=== PATIENT | female | born 1995 | race Caucasian/White ===

== ENCOUNTER → 2020-08-04 12:51 | Outpatient (BNVA) | payer OTHER, SELFPAY | PROVIDERS: Visit Provider Nurse Practitioner | DX: J02.9 Acute pharyngitis, unspecified (principal) | CPT/HCPCS: 87071; 87880 ==

== ENCOUNTER → 2023-09-14 13:48 | Outpatient (BNVA) | payer OTHER, SELFPAY | PROVIDERS: Visit Provider Obstetrics & Gynecology | DX: Z01.419 Encounter for gynecological examination (general) (routine) without abnormal findings (principal); Z31.69 Encounter for other general counseling and advice on procreation | CPT/HCPCS: 80053; 84146; 84443; 85025; 87624 ==

== ENCOUNTER → 2023-10-20 08:00 | Outpatient (BNVA) | payer OTHER, SELFPAY | PROVIDERS: Visit Provider Nurse Practitioner Women's Health | DX: Z32.01 Encounter for pregnancy test, result positive (principal); N92.6 Irregular menstruation, unspecified | CPT/HCPCS: 81025; 84702; 86850; 86900 ==

== ENCOUNTER → 2023-10-31 14:21 | Outpatient (BNVA) | payer OTHER, SELFPAY | PROVIDERS: Visit Provider Nurse Practitioner Women's Health | DX: Z36.87 Encounter for antenatal screening for uncertain dates (principal); Z3A.01 Less than 8 weeks gestation of pregnancy; O20.8 Other hemorrhage in early pregnancy | CPT/HCPCS: 76801; 76802 ==

== ENCOUNTER → 2023-11-15 10:20 | Outpatient (BNVA) | payer OTHER, SELFPAY | PROVIDERS: Visit Provider Obstetrics & Gynecology | DX: O20.8 Other hemorrhage in early pregnancy (principal); O30.001 Twin pregnancy, unspecified number of placenta and unspecified number of amniotic sacs, first trimester; Z3A.09 9 weeks gestation of pregnancy | CPT/HCPCS: 76801; 76802 ==

== ENCOUNTER → 2023-11-18 08:12 | Outpatient (BNVA) | payer OTHER, SELFPAY | PROVIDERS: Visit Provider Nurse Practitioner Women's Health | DX: O30.009 Twin pregnancy, unspecified number of placenta and unspecified number of amniotic sacs, unspecified trimester (principal) | CPT/HCPCS: 80307; 84315; 84443; 86592; 86762; 86787; 86803; 86850; 86900; 87086; 87340; 87491; 87591; 87806 ==

== ENCOUNTER → 2023-11-28 14:15 | Outpatient (BNVA) | payer OTHER, SELFPAY | PROVIDERS: Visit Provider Obstetrics & Gynecology | DX: O20.8 Other hemorrhage in early pregnancy (principal); O30.001 Twin pregnancy, unspecified number of placenta and unspecified number of amniotic sacs, first trimester; Z3A.11 11 weeks gestation of pregnancy | CPT/HCPCS: 76805; 76810 ==

== ENCOUNTER → 2023-11-30 08:13 | Outpatient (BNVA) | payer OTHER, SELFPAY | PROVIDERS: Visit Provider Obstetrics & Gynecology | DX: Z53.9 Procedure and treatment not carried out, unspecified reason (principal) | CPT/HCPCS: 84315 ==

== ENCOUNTER → 2024-02-22 07:54 | Outpatient (BNVA) | payer OTHER, SELFPAY | PROVIDERS: Visit Provider Nurse Practitioner Women's Health | DX: O26.892 Other specified pregnancy related conditions, second trimester (principal); Z3A.24 24 weeks gestation of pregnancy | CPT/HCPCS: 76816; 82950; 84315 ==

== ENCOUNTER → 2024-03-21 09:02 | Outpatient (BNVA) | payer BC, SELFPAY | PROVIDERS: Visit Provider Obstetrics & Gynecology | DX: O30.049 Twin pregnancy, dichorionic/diamniotic, unspecified trimester (principal) | CPT/HCPCS: 84315 ==

== ENCOUNTER → 2024-03-22 11:04 | Outpatient (BNVA) | payer BC, SELFPAY | PROVIDERS: Visit Provider Obstetrics & Gynecology | DX: O30.049 Twin pregnancy, dichorionic/diamniotic, unspecified trimester (principal); Z36.9 Encounter for antenatal screening, unspecified | CPT/HCPCS: 76816 ==

== ENCOUNTER 2024-04-04 14:00 | Outpatient (CLI) | payer OTHER, SELFPAY ==
[2024-04-04 14:10] VITALS: BMI 31.2
[2024-04-04 14:17] VITALS: BP 125/65; PULSE 93
[2024-04-04 14:20] VITALS: RESP 17
[2024-04-04] MEDS: betamethasone susp 6 mg/mL 1 mL (per mL) 12 MG IM (14:39)
== END 2024-04-04 14:43 | disposition home or self-care (01) ==
LOC: OPOB 14:05 → OBGYN 14:07
PROVIDERS: Visit Provider Obstetrics & Gynecology
DX: O26.899 Other specified pregnancy related conditions, unspecified trimester (principal); Z3A.00 Weeks of gestation of pregnancy not specified
CPT/HCPCS: 84315; 96372; 99211; J0702

== ENCOUNTER 2024-04-05 15:24 | Outpatient (CLI) | payer OTHER, SELFPAY ==
[2024-04-05 15:35] VITALS: BP 133/73; PULSE 113
[2024-04-05] MEDS: betamethasone susp 6 mg/mL 1 mL (per mL) 12 MG IM (15:41)
== END 2024-04-05 15:35 | disposition home or self-care (01) ==
LOC: OPOB 15:25 → OBGYN 15:28
PROVIDERS: Visit Provider Obstetrics & Gynecology
DX: O26.899 Other specified pregnancy related conditions, unspecified trimester (principal); Z3A.00 Weeks of gestation of pregnancy not specified
CPT/HCPCS: 96372; J0702

== ENCOUNTER → 2024-04-18 10:26 | Outpatient (BNVA) | payer OTHER, SELFPAY | PROVIDERS: Visit Provider Obstetrics & Gynecology | DX: O30.049 Twin pregnancy, dichorionic/diamniotic, unspecified trimester (principal) | CPT/HCPCS: 76816; 84315; 85025 ==

== ENCOUNTER → 2024-05-08 13:51 | Outpatient (BNVA) | payer OTHER, SELFPAY | PROVIDERS: Visit Provider Nurse Practitioner Women's Health | DX: O30.049 Twin pregnancy, dichorionic/diamniotic, unspecified trimester (principal) | CPT/HCPCS: 84315 ==

== ENCOUNTER 2024-05-14 14:20 | Outpatient (CLI) | payer OTHER, SELFPAY ==
[2024-05-14] VITALS (7 sets, daily range): BP systolic 126–140; BP diastolic 68–75; PULSE 93–100; RESP 16; TEMP 36.7; O2SAT 99; BMI 33.3
== END 2024-05-14 16:02 | disposition home or self-care (01) ==
LOC: OPOB 14:24 → OBGYN 14:24
PROVIDERS: Visit Provider Obstetrics & Gynecology
DX: O16.9 Unspecified maternal hypertension, unspecified trimester (principal); Z3A.00 Weeks of gestation of pregnancy not specified
CPT/HCPCS: 59025; 99211

== ENCOUNTER → 2024-05-16 10:29 | Outpatient (BNVA) | payer OTHER, SELFPAY | PROVIDERS: Visit Provider Obstetrics & Gynecology | DX: O30.043 Twin pregnancy, dichorionic/diamniotic, third trimester (principal); O35.9XX0 Maternal care for (suspected) fetal abnormality and damage, unspecified, not applicable or unspecified; Z3A.35 35 weeks gestation of pregnancy | CPT/HCPCS: 76816; 84315; 87081 ==

== ENCOUNTER 2024-05-17 11:35 | Outpatient (CLI) | payer OTHER, SELFPAY ==
[2024-05-17 11:47] VITALS: BP 135/83; PULSE 95
[2024-05-17 12:08] VITALS: BP 131/77; PULSE 99
[2024-05-17 12:28] VITALS: BP 126/79; PULSE 94
== END 2024-05-17 12:30 | disposition home or self-care (01) ==
LOC: OPOB 11:37 → OBGYN 11:38
PROVIDERS: Visit Provider Obstetrics & Gynecology
DX: O16.9 Unspecified maternal hypertension, unspecified trimester (principal); Z3A.00 Weeks of gestation of pregnancy not specified
CPT/HCPCS: 59025; 99211

== ENCOUNTER 2024-05-21 09:34 | Outpatient (CLI) | payer OTHER, SELFPAY ==
[2024-05-21 09:34] VITALS: BMI 34.4
[2024-05-21 09:45] VITALS: BP 143/81; PULSE 98
[2024-05-21 10:03] VITALS: BP 137/83; PULSE 96
[2024-05-21 10:17] VITALS: BP 138/85; PULSE 102
[2024-05-21 10:32] VITALS: BP 139/84; PULSE 101
== END 2024-05-21 10:38 | disposition home or self-care (01) ==
LOC: OPOB 09:37 → OBGYN 09:38
PROVIDERS: Visit Provider Obstetrics & Gynecology
DX: O16.9 Unspecified maternal hypertension, unspecified trimester (principal); Z3A.00 Weeks of gestation of pregnancy not specified
CPT/HCPCS: 59025

== ENCOUNTER 2024-05-23 11:15 | Outpatient (CLI) | payer OTHER, SELFPAY ==
[2024-05-23 11:30] VITALS: BP 142/84; PULSE 104
[2024-05-23 11:44] VITALS: BMI 34.2
[2024-05-23 11:46] VITALS: BP 131/73; PULSE 96
[2024-05-23 12:01] VITALS: BP 139/79; PULSE 89
[2024-05-23 12:16] VITALS: BP 134/77; PULSE 92
== END 2024-05-23 12:28 | disposition home or self-care (01) ==
LOC: OPOB 11:17 → OBGYN 11:18
PROVIDERS: Visit Provider Obstetrics & Gynecology
DX: O16.9 Unspecified maternal hypertension, unspecified trimester (principal); Z3A.00 Weeks of gestation of pregnancy not specified
CPT/HCPCS: 59025; 99211

== ENCOUNTER 2024-05-25 03:47 | Inpatient (IN) | payer OTHER, SELFPAY ==
[2024-05-25] VITALS (74 sets, daily range): BP systolic 114–145; BP diastolic 51–87; PULSE 81–134; RESP 16; TEMP 36.6; O2SAT 92–100; BMI 34.2
[2024-05-25 03:24] LABS: Basophils % 0.4 %; Eosinophils # 0.2 10^3/uL (0.0-0.8); Eosinophils % 1.7 %; Lymphocytes # 2.3 10^3/uL (0.8-4.8); Lymphocytes % 22.4 %; Mean Corpuscular HGB Conc 34.2 g/dL (30-55); Mean Corpuscular Hemoglobin 31.5 pg (27-33); Mean Corpuscular Volume 92.1 fl (85-98); Mean Platelet Volume 12.2 fL (7.4-10.4); Monocytes % 9.6 %; Neutrophils # 6.75 10^3/uL (1.8-7.7); Nucleated Red Blood Cells % 0 %; Platelet Count 107 10^3/cmm (157-399); Red Blood Count 3.91 10^6/uL (3.85-5.65); Red Cell Distribution Width 12.5 % (12.1-15.1); White Blood Count 10.39 10^3/uL (3.29-11.43)
[2024-05-25] MEDS: ampicillin 2,000 MG in sodium chloride 0.9% (plus) 50 ML 100 MG IV (04:02)
[2024-05-25] MEDS: dextrose 5%-lactated ringers 1,000 ML 125 ML IV (04:02)
--- NOTE | 2024-05-25 04:10 | PM.OBGYHP ---
Providers/Chief Complaint Admitting Physician: Mickey Chairez MD Primary BALING MACHINE OPERATOR: Mickey Chairez MD Chief Complaint: Poss SROM HPI BALING MACHINE OPERATOR History of Present Illness Marli Samuels is a 29 year old female G1 with dichorionic / diamnionic twins EDC June 13, 2024 at 37 w 2 d no complications presented to L&D c/o fluid leakage mild uterine contractions no bleeding + active movements Present Details : 1 Labs Rubella: Immune RPR: Negative GBS: Positive Medications/Allergies Home Medications ?Medication ?Instructions ?Recorded ?Confirmed ?Last Taken ?Type multivitamin with iron (Daily 1 tab PO DAILY 01/02/24 05/25/24 Unknown History Vitamin with Iron tablet) aspirin 81 mg tablet,delayed 81 mg PO DAILY 02/13/24 05/25/24 Unknown History release (Adult Low Dose Aspirin) famotidine 20 mg tablet (Pepcid) 20 mg PO DAILY 02/13/24 05/25/24 Unknown History Allergies Allergy/AdvReac Type Severity Reaction Status Date / Time No Known Allergies Allergy Verified 05/25/24 03:32 PFSH BALING MACHINE OPERATOR PFSH: Family History Mother Hypertension Brother Hypertension Denies family history of Colon cancer Ovarian cancer Prostate cancer Diabetes Heart disease Breast cancer Thyroid disease Stroke Social History Smoking and tobacco/nicotine status: never used tobacco/nicotine History History History 1 Term Miscarriages/Ectopic Living Children Care TAMMIE Calculator Estimated Delivery Date Method Current WG Current Estimate 06/13/24 LMP (Certain) 37w 3d Other Estimates 06/16/24 Ultrasound #1 37w 0d # 2 Specific Issues/Plans TWIN DI/DI: recieved betamethasone at 30 weeks NAUSEA AND VOMITING IN : Taking Reglan daily Vitals/I&O/Wt Last Vital Signs Temp 97.9 F 05/25/24 03:13 Pulse 117 H 05/26/24 08:46 Resp 16 05/25/24 03:13 BP 130/60 05/26/24 08:43 Pulse Ox 98 05/26/24 08:46 O2 Del Method Room Air 05/25/24 22:15 05/25/24 05/26/2405/26/25 22:59 06:59 14:59 Intake Total 514.917 / 615.700 933.8 / 1549.500 Output Total 300 / 300 Balance 514.917 / 615.700 633.8 / 1249.500 Weight last 48 hrs Weight 239 lb Physical Exam Narrative: Weight 230 lbs; 5?10? VS normal General comfortable, awake, alert Lungs: clear Cor: RRR Abd: nontender Vulva: + gross clear amniotic fluid Cervix: 3 cm / 50% / -2 Bedside sono cephalic / cephalic twins External monitor: heart tracing good variability, + accelerations x two Urinary Catheter Management: Villarreal Latex: Cath Placed During This Visit: yes, but has since been removed by the nurse Reason for Continuing Indwelling Catheter: Other Urinary Catheter Date of Insertion: 05/25/24 Urinary Catheter Time of Insertion: 17:30 Date Urinary Catheter Removed: 05/25/24 Time Urinary Catheter Discontinued: 20:35 Data 05/25/24 10:17 Results Labs OB ([facility]): Obstetrics US 05/16/24 Blood Type A Positive 05/25/24 Antibody Screen Negative 05/25/24 Hct 36.9 % (36-47) 05/25/24 Hgb 12.40 g/dL (11.27-16.99) 05/25/24 Rho(D) Type Rh positive 05/25/24 Plt Count 112 10^3/cmm (157-399) L 05/25/24 Hep Bs Antigen Non-reactive (Nonreactive) 11/18/23 Hepatitis C Antibody Non-reactive (Nonreactive) 11/18/23 Rubella IgG Antibody 69.2 IU/mL (0.0-10.0) H 11/18/23 RPR Nonreactive (Nonreactive) 11/18/23 HIV 1&2 Ab & HIV 1 Ag Non-reactive (Non-Reactiv) 11/18/23 TSH 0.50 uIU/mL (0.27-4.20) 11/18/23 C.trachomatis RNA (TMA) Not detected (NOT DETECTED) 11/18/23 N.gonorrhoeae RNA (TMA) Not detected (NOT DETECTED) 11/18/23 T. vaginalis Amp RNA Not detected (NOT DETECTED) 11/18/23 Chlamydia/GC Comment See note 11/18/23 Glucose 1 Hr 50 gm 93 mg/dL (85-140) 02/22/24 VZV IgG Antibody 1608.00 index 11/18/23 Ser , Semi-Qnt 88388.00 mIU/mL 10/20/23 HCG, Qual Positive (Negative) H 10/20/23 Urine Opiates Screen Negative ng/mL (Negative) 11/18/23 Ur Barbiturates Screen Negative ng/mL (Negative) 11/18/23 Ur Phencyclidine Scrn Negative ng/mL (Negative) 11/18/23 Ur Amphetamines Screen Negative ng/mL (Negative) 11/18/23 U Benzodiazepines Scrn Negative ng/mL (Negative) 11/18/23 Urine Cocaine Screen Negative ng/mL (Negative) 11/18/23 U Marijuana (THC) Screen Negative ng/mL (Negative) 11/18/23 Micro Urine Specimen 11/18/23 Pap Smear Interpret See note 09/14/23 Prolactin 13.06 ng/mL (4.8-23.3) 09/14/23 A&P Assessment and plan (1) Twin , dichorionic/diamniotic, unspecified trimester: Di / Di twins at 37 w 2 d Cephalic / cephalic Spontaneous rupture of membranes Cx at 3 cm Will admit Labor management Start Abx for GBS + PDMP PDMP Reviewed: Not Reviewed Attestations Medical Necessity Statement*: patient with twins at 37 w 2 d, spontaneous rupture of membranes Coding Level of Care Code Acute Code for Chg Fwd Diagnoses Twin , dichorionic/diamniotic, unspecified trimester O30.049 Time Spent (min) 60
[2024-05-25] MEDS: ampicillin 1,000 MG in sodium chloride 0.9% (plus) 50 ML 100 MG IV ×3 (10:22→18:21)
[2024-05-25 10:34] LABS: Basophils # 0.1 10^3/uL (0.0-0.1); Basophils % 0.5 %; Eosinophils # 0.1 10^3/uL (0.0-0.8); Eosinophils % 1.2 %; Hematocrit 36.9 % (36-47); Lymphocytes % 17.9 %; Mean Corpuscular HGB Conc 33.6 g/dL (30-55); Mean Corpuscular Hemoglobin 31.2 pg (27-33); Mean Corpuscular Volume 92.7 fl (85-98); Mean Platelet Volume 12.1 fL (7.4-10.4); Monocytes # 0.9 10^3/uL (0.2-0.9); Monocytes % 7.7 %; Nucleated Red Blood Cells % 0 %; Platelet Count 112 10^3/cmm (157-399); Red Blood Count 3.98 10^6/uL (3.85-5.65); Red Cell Distribution Width 12.5 % (12.1-15.1); White Blood Count 10.97 10^3/uL (3.29-11.43)
--- NOTE | 2024-05-25 11:45 | P.PN_ITS ---
TRAILER SECTIONS ASSEMBLER Subjective 2 Subjective: Interval history: Fetus reassuring x two Mild uterine contractions Plan start Pitocin augmentation Labor: Station: +2 Amniotic Membrane Status: Ruptured Monitor Mode: Palpation Contraction Pattern: Regular Vitals/I&O/Wt Last Vital Signs Temp 97.9 F 05/25/24 03:13 Pulse 117 H 05/26/24 08:46 Resp 16 05/25/24 03:13 BP 130/60 05/26/24 08:43 Pulse Ox 98 05/26/24 08:46 O2 Del Method Room Air 05/25/24 22:15 05/25/24 05/26/24 05/26/24 22:59 06:59 14:59 Intake Total 514.917 / 615.700 933.8 / 1549.500 Output Total 300 / 300 Balance 514.917 / 615.700 633.8 / 1249.500 Weight last 48 hrs Weight 239 lb Physical Exam 2 Urinary Catheter Management: Villarreal Latex: Cath Placed During This Visit: yes, but has since been removed by the nurse Reason for Continuing Indwelling Catheter: Other Urinary Catheter Date of Insertion: 05/25/24 Urinary Catheter Time of Insertion: 17:30 Date Urinary Catheter Removed: 05/25/24 Time Urinary Catheter Discontinued: 20:35 Data 05/25/24 10:17 A&P Assessment and plan (1) Twin , dichorionic/diamniotic, unspecified trimester: PDMP PDMP Reviewed: Not Reviewed Attestations 2 Medical Necessity Statement*: patient with twins at 37 w 2 d, spontaneous rupture of membranes Coding Level of Care Code Acute Code for Chg Fwd Diagnoses Twin , dichorionic/diamniotic, unspecified trimester O30.049 Time Spent (min) 30
[2024-05-25] MEDS: oxytocin 30 UNIT/500 ML BAG IV (14:03)
[2024-05-25] MEDS: acetaminophen 325 mg Tablet 650 MG PO (14:05)
[2024-05-25] MEDS: lactated ringers 1,000 ML 999 ML IV ×2 (15:35→22:40)
[2024-05-25] MEDS: ROPivacaine syringe 100 MG/50 ML SYRINGE 10 MG EPIDURAL ×2 (16:30→20:19)
--- NOTE | 2024-05-25 16:39 | ANES.PREANE2 ---
Pre-Anesthetic Assessment Height/Weight: Height 1.78 m Weight 108.409 kg Temp Pulse Resp BP Pulse Ox O2 Del Method 97.9 F 88 16 133/73 99 Room Air 05/25/24 03:13 05/25/24 16:37 05/25/24 03:13 05/25/24 16:37 05/25/24 16:27 05/25/24 04:26 Preop Diagnosis: intrauterine Familial anesthetic complications: none Was Beta Apolonia taken within 24 hours: N/A Was Clonidine taken within 24 hours: N/A Last intake: 05/24/24 2100 Social No alcohol and No tobacco Exam alert, oriented x 3, clear to auscultation bilaterally and regular rate & rhythm Airway Submandibular: within normal limits Mallampati: Class II Dentition: full History/ROS No significant history except as noted and No significant complaints Pulmonary None reported CV/HEM None reported None reported Hepatic None reported GI Gastroesophageal Reflux Disease Metabolic None reported Musc/skel None reported Neuropsych None reported Anesthetic Plan ASA status: 2 Anesthesia: Regional (specify below) Other: epidural Medications/Allergies Home Medications ?Medication ?Instructions ?Recorded ?Confirmed ?Last Taken ?Type multivitamin with iron (Daily 1 tab PO DAILY 01/02/24 05/25/24 Unknown History Vitamin with Iron tablet) famotidine 20 mg tablet (Pepcid) 20 mg PO DAILY 02/13/24 05/25/24 Unknown History oxycodone-acetaminophen 5 mg-325 1 tab PO BID PRN pain #20 tabs 05/27/24 Unknown Rx mg tablet (Percocet) Allergies Allergy/AdvReac Type Severity Reaction Status Date / Time No Known Allergies Allergy Verified 05/25/24 03:32 Current Medications Generic Name Dose Route Start Last Admin Trade Name Freq PRN Reason Stop Dose Admin Acetaminophen 650 mg 05/25/24 03:13 05/25/24 14:05 Acetaminophen 325 Mg Tablet PO 650 mg Q6H PRN Administration Mild pain or temp > 100.4 Dextrose/Lactated Ringer's 1,000 mls @ 125 mls/hr 05/25/24 03:15 05/25/24 04:02 Dextrose 5%-Lactated Ringers IV 125 mls/hr .Q8H TINO Administration Ampicillin Sodium 1,000 mg/ 50 mls @ 100 mls/hr 05/25/24 07:15 05/25/24 14:06 Sodium Chloride IV 100 mls/hr Q4H TINO Administration Protocol Oxytocin 30 unit in 500 mls @ 1 mls/hr 05/25/24 12:00 05/25/24 15:40 Pitocin IV 6 milliunit/min .Q24H TINO 6 mls/hr Titration Protocol 1 MILLIUNIT/MIN Lactated Ringer's 1,000 mls @ 999 mls/hr 05/25/24 15:19 05/25/24 15:35 Lactated Ringers IV 999 mls/hr .Q1H1M PRN Administration See label comments PFSH Anesthesia Medical History (Updated 05/28/24 @ 00:00 by ANNAMARIA Mendoza) Twin delivered vaginally Twin , dichorionic/diamniotic, unspecified trimester Family History Mother Hypertension Brother Hypertension Denies family history of Colon cancer Ovarian cancer Prostate cancer Diabetes Heart disease Breast cancer Thyroid disease Stroke Social History Smoking and tobacco/nicotine status: never used tobacco/nicotine Female Reproductive History : 1 Data Anesthesia 05/26/24 17:20 Short CBC 05/25/24 05/25/24 Range/Units 03:18 10:17 WBC 10.39 10.97 (3.29-11.43) 10^3/uL Hgb 12.30 12.40 (11.27-16.99) g/dL Hct 36.0 36.9 (36-47) % MCV 92.1 92.7 (85-98) fl Plt Count 107 L 112 L (157-399) 10^3/cmm Neut % (Auto) 65.0 72.0 % Neut # (Auto) 6.75 7.90 H (1.8-7.7) 10^3/uL Blood Bank 05/25/24 03:18 Blood Type A Positive Rho(D) Type Rh positive Antibody Screen Negative Cardiac Studies: No Data to Display Anesthesia Procedures Date of Procedure 05/25/24 Epidural Time Out Performed: Yes Consents Signed: Procedure Consent and NPO Consent Consent: requested by attending/covering physician, from patient, risks and benefits reviewed and patient agrees to proceed Lumbar Level: L4-L5 Epidural position: sitting Epidural procedure: sterile prep of area, 1% lidocaine to numb the area, 18 g needle, negative for paresthesia passed, neg for paresthesia, test dose given, 1.5% xylocaine 1:200k epi, 0.2% Ropivacaine bolus ml (5mL), placed PCEA, no systemic response, sterile dressing applied, L.U.D. no apparent complications and 0.2% Ropiavacaine @ mls/hr (10mL/hr) Additional Comments: BENITO @ 5cm, easy placement no complications.
--- NOTE | 2024-05-25 22:05 | PM.DELIVERY ---
Delivery Note: Date of delivery: May 25, 2024 Pre-delivery diagnoses: dichorionic, diamnionic twins 37 w 2 d spontaneous rupture of membranes Post-delivery diagnoses: dichorionic, diamnionic twins 37 w 2 d spontaneous rupture of membranes labor augmentation vaginal delivery of twins repair of third-degree perineal laceration Procedure: labor augmentation vaginal delivery of twins repair of third-degree perineal laceration Op report anesthesia: Epidural Delivering Physician: Mickey Chairez MD Estimated blood loss (mL): 500 Findings: twin A, vigorous female infant twin B, vigorous female infant Cord gases obtained Normal placenta and cord No episiotomy Third-degree perineal laceration repaired in layers EBL: 500 cc No complications Pre-Delivery Course: normal labor course Delivery: vaginal Post-Delivery Status: good History History History 1 Term Miscarriages/Ectopic Living Children A&P Assessment and plan (1) Twin delivered vaginally: PDMP PDMP Reviewed: Not Reviewed Coding Level of Care Code Acute Code for Chg Fwd Diagnoses Twin delivered vaginally O30.009 Time Spent (min) 60
--- NOTE | 2024-05-25 22:40 | PC.NURSE ---
Patient to PP room. Patient states I'm not feeling so good, my ears are ringing. Patient's color has drained from her face and she is not focusing. Patient states she feels out of my body. Fundus is firm with massage. Vitals obtained, fluid bolus started, pitocin increased to bolus. Patient color returning to normal and patient states she is feeling less dizzy.
[2024-05-26] VITALS (172 sets, daily range): BP systolic 106–139; BP diastolic 54–87; PULSE 84–137; RESP 16–18; TEMP 36.6–36.9; O2SAT 89–100
[2024-05-26] MEDS: oxytocin 30 UNIT/500 ML BAG 600 UNIT IV
--- NOTE | 2024-05-26 01:00 | PC.NURSE ---
Patient assisted to side of bed, patient tolerates sitting up and dangling feet off side of bed, standing and walking to bathroom. When patient sits down on the toilet she states I don't feel so good, my ears are ringing. Patient has lost color in her face, Radial Pulse taken and is found to be 110s. Patient feeling unsteady on the toilet. Fundus is midline and firm, minimal bleeding. Emergency light activated for assistance. Staff arrive and assist in getting patient back to bed. Fan provided at bedside. Vitals obtained. Patient states they are feeling better.
[2024-05-26] MEDS: HYDROcodone-acetaminophen 5-325 mg Tablet PO ×3 (06:13→20:11)
[2024-05-26] MEDS: benzocaine-menthol 78 gm Canister 1 SPRAY TOPICAL (06:20)
--- NOTE | 2024-05-26 08:00 | ANE.PACU2 ---
Inpatient post-anesthesia follow up: Airway intact: Yes Vital signs: Temperature 98.0 F Pulse Rate 115 Respiratory Rate 18 Blood Pressure 136/79 Pulse Oximetry 98 Oxygen Delivery Me thod Room Air Oxygen Flow Rate Fraction of Inspir ed Oxygen Hydration adequate: Yes Nausea and vomiting: No Pain level: 1 Mental status: Baseline Epidural Start/End: Epidural Start Date: 05/25/24 Epidural Start Time: 16:16 Epidural End Date: 05/26/24 Epidural End Time: 01:00
[2024-05-26] MEDS: PRENATAL VIT NO.130/IRON/FOLIC 1 EACH TABLET PO (08:20)
[2024-05-26] MEDS: docusate sodium 100 mg Capsule PO ×2 (08:20→20:11)
[2024-05-26] MEDS: ibuprofen 800 mg tablet PO ×3 (08:20→20:11)
[2024-05-26 09:01] LABS: Hematocrit 22.3 % (36-47); Mean Corpuscular HGB Conc 34.1 g/dL (30-55); Mean Corpuscular Hemoglobin 32.1 pg (27-33); Mean Corpuscular Volume 94.1 fl (85-98); Mean Platelet Volume 12.1 fL (7.4-10.4); Platelet Count 106 10^3/cmm (157-399); Red Blood Count 2.37 10^6/uL (3.85-5.65); Red Cell Distribution Width 12.8 % (12.1-15.1); White Blood Count 14.18 10^3/uL (3.29-11.43)
--- NOTE | 2024-05-26 11:50 | PM.OBGYPN ---
ENVIRONMENTAL SCIENTIST Subjective Subjective: Interval history: no c/o no headaches, dizziness, nausea, abdominal pain, bleeding normal lochia mild perineal pain, relieved with pain meds eating, voiding, ambulating well Labor: Station: +2 Amniotic Membrane Status: Ruptured Monitor Mode: Palpation Contraction Pattern: Regular Vitals/I&O/Wt Last Vital Signs Temp 98.0 F 05/27/24 13:58 Pulse 115 H 05/27/24 13:21 Resp 18 05/26/24 13:44 BP 136/79 05/27/24 13:21 Pulse Ox 98 05/26/24 15:11 O2 Del Method Room Air 05/25/24 22:15 Physical Exam Narrative: afebrile, VS normal comfortable, awake, alert Abd: soft, nontender. fundus firm Ext: no edema; nontender Urinary Catheter Management: Villarreal Latex: Cath Placed During This Visit: yes, but has since been removed by the nurse Reason for Continuing Indwelling Catheter: Other Urinary Catheter Date of Insertion: 05/25/24 Urinary Catheter Time of Insertion: 17:30 Date Urinary Catheter Removed: 05/25/24 Time Urinary Catheter Discontinued: 20:35 Data 05/26/24 17:20 A&P Assessment and plan (1) Twin delivered vaginally: PPD #1 twins, with repair of third-degree perineal laceration doing well normal course continue care PDMP PDMP Reviewed: Last Reviewed 05/27/24 12:17 EDT by Mickey Chairez MD Attestations Medical Necessity Statement*: patient s/p vaginal delivery of twins, for care Coding Level of Care Code Acute Code for Chg Fwd Diagnoses Twin delivered vaginally O30.009
[2024-05-26 18:54] LABS: Basophils % 0.3 %; Eosinophils # 0.1 10^3/uL (0.0-0.8); Eosinophils % 0.7 %; Hematocrit 24.2 % (36-47); Lymphocytes # 2.6 10^3/uL (0.8-4.8); Lymphocytes % 21.6 %; Mean Corpuscular HGB Conc 33.9 g/dL (30-55); Mean Corpuscular Hemoglobin 31.9 pg (27-33); Mean Corpuscular Volume 94.2 fl (85-98); Mean Platelet Volume 12.4 fL (7.4-10.4); Monocytes # 1.2 10^3/uL (0.2-0.9); Monocytes % 9.5 %; Neutrophils # 8.21 10^3/uL (1.8-7.7); Neutrophils % 67.3 %; Nucleated Red Blood Cells % 0 %; Platelet Count 108 10^3/cmm (157-399); Red Blood Count 2.57 10^6/uL (3.85-5.65); Red Cell Distribution Width 12.9 % (12.1-15.1); White Blood Count 12.19 10^3/uL (3.29-11.43)
[2024-05-27] MEDS: HYDROcodone-acetaminophen 5-325 mg Tablet PO ×2 (03:03→11:00)
[2024-05-27 03:06] VITALS: BP 138/75; PULSE 126; TEMP 36.3
[2024-05-27] MEDS: docusate sodium 100 mg Capsule PO (08:53)
[2024-05-27] MEDS: PRENATAL VIT NO.130/IRON/FOLIC 1 EACH TABLET PO (08:53)
[2024-05-27] MEDS: ibuprofen 800 mg tablet PO (08:53)
[2024-05-27 13:21] VITALS: BP 136/79; PULSE 115
[2024-05-27 13:58] VITALS: TEMP 36.7
--- NOTE | 2024-05-27 14:05 | P.DS_ITS ---
Discharge Providers MISCELLANEOUS MACHINE OPERATOR Date of Admission: 05/25/24 03:47 Date of Discharge: 05/27/24 Attending Provider at Admission: Mickey Chairez MD Attending Provider at Discharge: Mickey Chairez MD Consults: none Primary MISCELLANEOUS MACHINE OPERATOR: Mickey Chairez MD Diagnoses at Discharge Discharge Diagnosis (1) Twin delivered vaginally: Details from hospital stay: 29 y.o. G1 with dichorionic / diamnionic twins EDC June 13, 2024 at 37 w 2 d no complications presented to L&D with spontaneous rupture of membranes twins were cephalic / cephalic pitocin augmentation was given both twins were reassuring throughout patient progressed to vaginal delivery of twins with repair of third-degree perineal laceration without any complications patient did well and was discharged to home on the second day Status: Acute Reason for Visit Reason for Visit: Poss SROM Brief History: 29 y.o. G1 with dichorionic / diamnionic twins EDC June 13, 2024 at 37 w 2 d no complications presented to L&D with spontaneous rupture of membranes Hospital Course Hospital Course 29 y.o. G1 with dichorionic / diamnionic twins EDC June 13, 2024 at 37 w 2 d no complications presented to L&D with spontaneous rupture of membranes twins were cephalic / cephalic pitocin augmentation was given both twins were reassuring throughout patient progressed to vaginal delivery of twins with repair of third-degree perineal laceration without any complications patient did well and was discharged to home on the second day Information Peripartum Data: Delivery Method: Vaginal Laceration description: Perineal - 3rd Degree Episiotomy description: None complications: none Physical Exam Narrative: afebrile, VS normal comfortable, awake, alert Lungs: clear Cor: RRR Abd: soft, nontender. fundus firm Ext: no edema; nontender Urinary Catheter Management: Villarreal Latex: Cath Placed During This Visit: yes, but has since been removed by the nurse Reason for Continuing Indwelling Catheter: Other Urinary Catheter Date of Insertion: 05/25/24 Urinary Catheter Time of Insertion: 17:30 Date Urinary Catheter Removed: 05/25/24 Time Urinary Catheter Discontinued: 20:35 History History History 1 Term Miscarriages/Ectopic Living Children Discharge Data Studies Completed and Pending Laboratory Results WBC 12.19 10^3/uL (3.29-11.43) H 05/26/24 17:20 RBC 2.57 10^6/uL (3.85-5.65) L 05/26/24 17:20 Hgb 8.20 g/dL (11.27-16.99) L 05/26/24 17:20 Hct 24.2 % (36-47) L 05/26/24 17:20 MCV 94.2 fl (85-98) 05/26/24 17:20 MCH 31.9 pg (27-33) 05/26/24 17:20 MCHC 33.9 g/dL (30-55) 05/26/24 17:20 RDW 12.9 % (12.1-15.1) 05/26/24 17:20 Plt Count 108 10^3/cmm (157-399) L 05/26/24 17:20 MPV 12.4 fL (7.4-10.4) H 05/26/24 17:20 Neut % (Auto) 67.3 % 05/26/24 17:20 Lymph % (Auto) 21.6 % 05/26/24 17:20 Gosper % (Auto) 9.5 % 05/26/24 17:20 Eos % (Auto) 0.7 % 05/26/24 17:20 Baso % (Auto) 0.3 % 05/26/24 17:20 Neut # (Auto) 8.21 10^3/uL (1.8-7.7) H 05/26/24 17:20 Lymph # (Auto) 2.6 10^3/uL (0.8-4.8) 05/26/24 17:20 Gosper # (Auto) 1.2 10^3/uL (0.2-0.9) H 05/26/24 17:20 Eos # (Auto) 0.1 10^3/uL (0.0-0.8) 05/26/24 17:20 Baso # (Auto) 0.0 10^3/uL (0.0-0.1) 05/26/24 17:20 Nucleated RBC % (auto) 0 % 05/26/24 17:20 Nucleated RBCs # 0.0 /100WBC 05/26/24 17:20 Blood Type A Positive 05/25/24 03:18 Rho(D) Type Rh positive 05/25/24 03:18 Antibody Screen Negative 05/25/24 03:18 Crossmatch See Detail 05/25/24 03:18 Procedures Performed pitocin augmentation of labor vaginal delivery of twins repair of third-degree perineal laceration Vitals Last Vital Signs Temp 98.0 F 05/27/24 13:58 Pulse 115 H 05/27/24 13:21 Resp 18 05/26/24 13:44 BP 136/79 05/27/24 13:21 Pulse Ox 98 05/26/24 15:11 O2 Del Method Room Air 05/25/24 22:15 Results Labs OB ([facility]): Obstetrics US 05/16/24 Blood Type A Positive 05/25/24 Antibody Screen Negative 05/25/24 Hct 24.2 % (36-47) L 05/26/24 Hgb 8.20 g/dL (11.27-16.99) L 05/26/24 Rho(D) Type Rh positive 05/25/24 Plt Count 108 10^3/cmm (157-399) L 05/26/24 Hep Bs Antigen Non-reactive (Nonreactive) 11/18/23 Hepatitis C Antibody Non-reactive (Nonreactive) 11/18/23 Rubella IgG Antibody 69.2 IU/mL (0.0-10.0) H 11/18/23 RPR Nonreactive (Nonreactive) 11/18/23 HIV 1&2 Ab & HIV 1 Ag Non-reactive (Non-Reactiv) 11/18/23 TSH 0.50 uIU/mL (0.27-4.20) 11/18/23 C.trachomatis RNA (TMA) Not detected (NOT DETECTED) N.gonorrhoeae RNA (TMA) Not detected (NOT DETECTED) T. vaginalis Amp RNA Not detected (NOT DETECTED) 11/18/23 Chlamydia/GC Comment See note 11/18/23 Glucose 1 Hr 50 gm 93 mg/dL (85-140) 02/22/24 VZV IgG Antibody 1608.00 index 11/18/23 Ser , Semi-Qnt 72388.00 mIU/mL 10/20/23 HCG, Qual Positive (Negative) H 10/20/23 Urine Opiates Screen Negative ng/mL (Negative) 11/18/23 Ur Barbiturates Screen Negative ng/mL (Negative) 11/18/23 Ur Phencyclidine Scrn Negative ng/mL (Negative) 11/18/23 Ur Amphetamines Screen Negative ng/mL (Negative) 11/18/23 U Benzodiazepines Scrn Negative ng/mL (Negative) 11/18/23 Urine Cocaine Screen Negative ng/mL (Negative) 11/18/23 U Marijuana (THC) Screen Negative ng/mL (Negative) 11/18/23 Micro Urine Specimen 11/18/23 Pap Smear Interpret See note 09/14/23 Prolactin 13.06 ng/mL (4.8-23.3) 09/14/23 Discharge Plan Discharge Patient Disposition: Home Condition: Stable Prescriptions: New oxycodone-acetaminophen [Percocet] 5-325 mg tablet 1 tab PO BID PRN (Reason: pain) Qty: 20 0RF Continued multivitamin with iron [Daily Vitamin with Iron] Tablet 1 tab PO DAILY famotidine [Pepcid] 20 mg tablet 20 mg PO DAILY Discontinued aspirin [Adult Low Dose Aspirin] 81 mg tablet,delayed release (DR/EC) 81 mg PO DAILY Discharge Orders: Discharge Order (Routine); Ordered 05/27/24 Ordered By: Mickey Chairez Discharge Diet: Usual diet Discharge Activity: Increase activity as tolerated Patient Instructions: Depression (DC), Opioid Safety (DC), Preeclampsia and Eclampsia After Delivery (GEN), Hemorrhage (DC), OB Discharge Report, OB Food/Drug Interaction Guide, OB Care at Home, Opioid Safety, OB Vaginal Deliveries, Abnormal Bleeding Discharge Attestations MISCELLANEOUS MACHINE OPERATOR Time Spent in Discharge Care*: less than 30 min Coding Level of Care Code Acute Code for Chg Fwd Diagnoses Twin delivered vaginally O30.009
== END 2024-05-27 13:59 | disposition home or self-care (01) | DRG 768 ==
LOC: OPOB 03:48 → OBGYN 03:48
PROVIDERS: Anesthesiology; Admitting Provider Obstetrics & Gynecology; Visit Provider Obstetrics & Gynecology
DX: O30.043 Twin pregnancy, dichorionic/diamniotic, third trimester (principal); Z37.2 Twins, both liveborn; O70.20 Third degree perineal laceration during delivery, unspecified; Z3A.37 37 weeks gestation of pregnancy
CPT/HCPCS: 36415; 36430; 51702; 59025; 59409; 83986; 85025; 85027; 86850; 86900; 86920; 99211; J0290; J2590; J2795; J7120; J7121; J9999; P9040

== ENCOUNTER 2024-08-20 21:15 | Observation (INO) | payer OTHER, SELFPAY ==
[2024-08-20 21:32] VITALS: BP 136/66; PULSE 71; RESP 20; TEMP 36.4; O2SAT 100; BMI 29.4
--- NOTE | 2024-08-20 21:36 | CTR_ITS ---
PROCEDURE INFORMATION: Exam: CT Abdomen And Pelvis With Contrast Exam date and time: 08/20/2024 10:20 PM Age: 29 years old Clinical indication: Abdominal pain; Epigastric; Additional info: Epigastric abd pain TECHNIQUE: Imaging protocol: Computed tomography of the abdomen and pelvis with contrast. Radiation optimization: All CT scans at this facility use at least one of these dose optimization techniques: automated exposure control; mA and/or kV adjustment per patient size (includes targeted exams where dose is matched to clinical indication); or iterative reconstruction. Contrast material: OMNI 350; Contrast volume: 100 ml; Contrast route: INTRAVENOUS (IV); COMPARISON: US OB follow up twins [id number] 05/16/2024 10:35 AM RADIATION DOSE METRICS: Total DLP (mGy-cm): 749.9 FINDINGS: Lungs: Subsegmental bibasilar atelectasis. The visualized lung bases are otherwise grossly clear. Diaphragm: No evidence of diaphragmatic defect. Liver: No focal hepatic lesion. Gallbladder and biliary ducts: Cholelithiasis with gallbladder distension and borderline gallbladder wall thickening as well as minimal pericholecystic haziness raising the question of early cholecystitis versus symptomatic cholelithiasis. No biliary dilatation. Pancreas: Unremarkable. Spleen: Unremarkable. Adrenal glands: Unremarkable. Kidneys and ureters: No renal parenchymal abnormality. No hydronephrosis or ureteral stone. Stomach and bowel: Few scattered colonic diverticula without evidence of acute diverticulitis. No evidence of bowel obstruction or perienteric inflammatory changes. Appendix: Normal appendix. Intraperitoneal space: No evidence of free air or fluid collection. Vasculature: No aneurysmal dilatation or dissection of the abdominal aorta. The celiac trunk, SMA and LONI are grossly patent. No evidence of IVC thrombus. The portal vein, SMV and splenic veins are grossly patent. Lymph nodes: No adenopathy. Urinary bladder: Grossly unremarkable. Reproductive: Grossly unremarkable. Bones/joints: No evidence of acute fracture or aggressive osseous lesion. Soft tissues: No evidence of fluid collection or hematoma in the superficial soft tissues. CT/CT abdomen pelvis w con* [id number] IMPRESSION: 1. Findings suspicious for symptomatic cholelithiasis versus early acute cholecystitis in the proper clinical setting. Consider correlation with biliary labs and right upper quadrant ultrasound.
--- NOTE | 2024-08-20 21:37 | ED_ITS ---
HPI - Nausea/Vomiting/Diarrhea 2 General: Chief complaint: Abdominal Pain Stated complaint: ABD Pain Time Seen by Provider: 08/20/24 21:22 History of Present Illness: Patient comes in with abdominal pain. States that today after lunch she developed epigastric/right upper quadrant abdominal pain which she describes as cramps/sharp/pressure that is constant. States it started to radiate into her back. States she started to get better then after dinner it happened again. States that has been constant since then but is now starting to ease up a little. States she made herself throw up once secondary to nausea which did not help. Denies any fever or diarrhea. Patient is 3 months from a vaginal delivery of twins. On physical exam she has mild right upper quadrant/epigastric tenderness to palpation. Will check labs, CT abdomen pelvis with IV contrast, give IV fluids, and reassess. The patient states her pain is good enough at this time she does not want any pain medication. Associated nausea: Yes Associated symtoms: Reports nausea Related Data Home Medications ?Medication ?Instructions ?Recorded ?Confirmed docusate sodium 100 mg capsule 100 mg PO DAILY 5 07/04/24 (Dulcolax Stool Softener (docusate)) ibuprofen 200 mg capsule 200 mg PO Q6H PRN 07/04/24 0 07/04/24 Allergies Allergy/AdvReac Type Severity Reaction Status Date / Time No Known Allergies Allergy Verified 07/04/24 08:05 Review of Systems 2 GI: Reports: abdominal pain and nausea PFSH ED 2 PFSH: Medical History (Updated 08/20/24 @ 23:51 by Sanket Gilmore MD) No pertinent past medical history neghx: dm, thyroid, dvt/pe PCP: none Twin delivered vaginally Twin , dichorionic/diamniotic, unspecified trimester Surgical History (Updated 07/18/24 @ 09:48 by Janay Kohler NP) No pertinent past surgical history Family History Mother Hypertension Brother Hypertension Denies family history of Colon cancer Ovarian cancer Prostate cancer Diabetes Heart disease Breast cancer Thyroid disease Stroke Social History Smoking and tobacco/nicotine status: never used tobacco/nicotine Physical Exam 2 Const: COMMON NORMALS: healthy appearing HENMT: COMMON NORMALS: normocephalic and atraumatic HEAD & SCALP: n ormocephalic and atraumatic Eye: COMMON NORMALS: Equal, round and reactive pupils present and EOMs intact bilaterally PUPIL: Yes Equal, round and reactive pupils present Neck/C-Spine: COMMON NORMALS: full ROM and supple Resp: COMMON NORMALS: normal respiratory effort, No retractions and No use of accessory muscles Cardio: COMMON NORMALS: regular rate and regular rhythm RATE: regular rate RHYTHM: regular rhythm GI: OTHER: Epigastric/right upper quadrant tenderness to palpation Extremity: COMMON NORMALS: normal to inspection and full ROM Course 2 Vital Signs: Vital signs: Vital Signs Temperature 97.5 F L 08/20/24 21:32 Pulse Rate 71 08/20/24 21:32 Respiratory Rate 22 H 08/20/24 22:04 Blood Pressure 136/66 08/20/24 21:32 Pulse Oximetry 100 08/20/24 21:32 Oxygen Delivery Me thod Room Air 08/20/24 21:32 MDM - Nausea/Vomiting/Diarrhea Medical Decision Making On reassessment I talked with the patient about her test results. Her AST and ALT were very mildly elevated in the high 30s. Her ultrasound is concerning for early acute cholecystitis. The patient is still requiring narcotic pain medication. I spoke with Dr. Lezama with general surgery who agrees to admit the patient for treatment of acute cholecystitis. Will start her on normal saline drip, Zosyn every 8, n.p.o. after midnight, and admit at this time. Lab Data 08/20/24 21:40 08/20/24 21:40 Radiology Impressions Abdomen/Pelvis CT 08/20/24 21:36 IMPRESSION: 1. Findings suspicious for symptomatic cholelithiasis versus early acute cholecystitis in the proper clinical setting. Consider correlation with biliary labs and right upper quadrant ultrasound. Gallbladder Ultrasound 08/20/24 22:47 IMPRESSION: 1. Findings compatible with early acute cholecystitis in the proper clinical setting. Laboratory Results WBC 5.61 10^3/uL (3.29-11.43) 08/20/24 21:40 RBC 4.49 10^6/uL (3.85-5.65) 08/20/24 21:40 Hgb 12.80 g/dL (11.27-16.99) 08/20/24 21:40 Hct 39.3 % (36-47) 08/20/24 21:40 MCV 87.5 fl (85-98) 08/20/24 21:40 MCH 28.5 pg (27-33) 08/20/24 21:40 MCHC 32.6 g/dL (30-55) 08/20/24 21:40 RDW 12.1 % (12.1-15.1) 08/20/24 21:40 Plt Count 184 10^3/cmm (157-399) 08/20/24 21:40 MPV 10.5 fL (7.4-10.4) H 08/20/24 21:40 Neut % (Auto) 37.2 % 08/20/24 21:40 Lymph % (Auto) 50.6 % 08/20/24 21:40 [place] % (Auto) 9.3 % 08/20/24 21:40 Eos % (Auto) 2.0 % 08/20/24 21:40 Baso % (Auto) 0.7 % 08/20/24 21:40 Neut # (Auto) 2.09 10^3/uL (1.8-7.7) 08/20/24 21:40 Lymph # (Auto) 2.8 10^3/uL (0.8-4.8) 08/20/24 21:40 [place] # (Auto) 0.5 10^3/uL (0.2-0.9) 08/20/24 21:40 Eos # (Auto) 0.1 10^3/uL (0.0-0.8) 08/20/24 21:40 Baso # (Auto) 0.0 10^3/uL (0.0-0.1) 08/20/24 21:40 Nucleated RBC % (auto) 0 % 08/20/24:40 Nucleated RBCs # 0.0 /100WBC 08/20/24 21:40 Sodium 143 mmol/L (136-145) 08/20/24 21:40 Potassium 4.3 mmol/L (3.5-5.1) 08/20/24 21:40 Chloride 106 mmol/L (98-107) 08/20/24 21:40 Carbon Dioxide 22 mmol/L (22-29) 08/20/24 21:40 Anion Gap 19.3 (5-19) H 08/20/24 21:40 BUN 12 mg/dL (6-20) 08/20/24 21:40 Creatinine 1.0 mg/dL (0.5-0.9) H 08/20/24 21:40 GFR Calculation 66.0 mL/min (90-130) L 08/20/24 21:40 Glucose 137 mg/dL (65-115) H 08/20/24 21:40 Calculated Osmolality 298 mOsm/kg (285-295) H 08/20/24 21:40 Calcium 9.5 mg/dL (8.5-10.5) 08/20/24 21:40 Total Bilirubin 0.6 mg/dL (0.15-1.2) 08/20/24 21:40 AST 38 U/L (0-32) H 08/20/24 21:40 ALT 37 U/L (0-33) H 08/20/24 21:40 Alkaline Phosphatase 92 U/L (35-105) 08/20/24 21:40 Total Protein 7.0 g/dL (6.6-8.7) 08/20/24 21:40 Albumin 4.5 g/dL (3.5-5.2) 08/20/24 21:40 Globulin 2.5 g/dL (1.3-4.6) 08/20/24 21:40 Lipase 27 U/L (13-60) 08/20/24 21:40 HCG, Qual Negative (Negative) 08/20/24 21:40 All radiology interpretation(s) finalized by discharge Discharge Plan Discharge Patient Disposition: Admitted As Inpatient Clinical Impression: Acute cholecystitis Condition: Stable Coding Level of Care Code ED Public Health Dentist for Gloria Mace
[2024-08-20 21:47] LABS: Basophils % 0.7 %; Eosinophils # 0.1 10^3/uL (0.0-0.8); Hematocrit 39.3 % (36-47); Lymphocytes # 2.8 10^3/uL (0.8-4.8); Lymphocytes % 50.6 %; Mean Corpuscular HGB Conc 32.6 g/dL (30-55); Mean Corpuscular Hemoglobin 28.5 pg (27-33); Mean Corpuscular Volume 87.5 fl (85-98); Mean Platelet Volume 10.5 fL (7.4-10.4); Monocytes # 0.5 10^3/uL (0.2-0.9); Monocytes % 9.3 %; Neutrophils # 2.09 10^3/uL (1.8-7.7); Neutrophils % 37.2 %; Nucleated Red Blood Cells % 0 %; Platelet Count 184 10^3/cmm (157-399); Red Blood Count 4.49 10^6/uL (3.85-5.65); Red Cell Distribution Width 12.1 % (12.1-15.1); White Blood Count 5.61 10^3/uL (3.29-11.43)
[2024-08-20] MEDS: sodium chloride 0.9% 1,000 ML 999 ML IV (22:00)
[2024-08-20 22:01] LABS: HCG, Serum Qual Negative (Negative)
[2024-08-20 22:04] VITALS: RESP 22
[2024-08-20 22:04] LABS: Blood Urea Nitrogen 12 mg/dL (6-20); Calcium 9.5 mg/dL (8.5-10.5); Carbon Dioxide 22 mmol/L (22-29); Creatinine Clr Calc Pharmacy 103.5226; Lipase 27 U/L (13-60); Potassium 4.3 mmol/L (3.5-5.1); Sodium 143 mmol/L (136-145); Total Bilirubin 0.6 mg/dL (0.15-1.2)
[2024-08-20] MEDS: ondansetron 2 mg/ML SDV 2 mL 4 MG IVP (22:04)
[2024-08-20] MEDS: morphine 4 mg/mL SDV 1 mL IVP (22:04)
[2024-08-20 22:08] VITALS: BP 130/84; PULSE 77; RESP 18; O2SAT 100
[2024-08-20] MEDS: iohexol 350 mg/mL 500 mL Btl (per mL) IV (22:22)
[2024-08-20 22:30] LABS: Alanine Aminotransferase 37 U/L (0-33); Albumin Level 4.5 g/dL (3.5-5.2); Alkaline Phosphatase 92 U/L (35-105); Globulin 2.5 g/dL (1.3-4.6)
[2024-08-20 22:31] LABS: Anion Gap 19.3 (5-19); Aspartate Amino Transferase 38 U/L (0-32); Chloride 106 mmol/L (98-107); Glucose 137 mg/dL (65-115); Osmolality Calculated 298 mOsm/kg (285-295)
--- NOTE | 2024-08-20 22:47 | USR_ITS ---
PROCEDURE INFORMATION: Exam: US Abdomen, Limited; Right Upper Quadrant Exam date and time: 08/20/2024 11:01 PM Age: 29 years old Clinical indication: Abdominal pain; Epigastric; Additional info: Ruq pain TECHNIQUE: Imaging protocol: Real time ultrasound of the abdomen with image documentation. Limited exam focused on the right upper quadrant. COMPARISON: US OB follow up twins [id number] 05/16/2024 10:35 AM FINDINGS: Liver: Visualized hepatic parenchyma is normal. The liver contour is grossly smooth. Gallbladder: There is cholelithiasis with gallbladder distension. Mild gallbladder wall thickening to 4 mm. The manager reading reports a positive sonographic López's sign. Biliary ducts: The CBD is nondilated, measuring 4 mm. No sonographic evidence of intraductal stone. Pancreas: The pancreas is partially obscured bowel gas. Visualized portions are grossly unremarkable. Right kidney: The right kidney is normal in echotexture and measures 11.5 cm in length. No evidence of hydronephrosis. US/US gall bladder [id number] IMPRESSION: 1. Findings compatible with early acute cholecystitis in the proper clinical setting.
[2024-08-20] MEDS: HYDROmorphone 0.5 MG/0.5 ML INJ IVP (22:58)
[2024-08-20 23:08] VITALS: BP 118/54; PULSE 55; RESP 16; O2SAT 100
[2024-08-21] VITALS (18 sets, daily range): BP systolic 104–147; BP diastolic 63–90; PULSE 63–107; RESP 16–18; TEMP 36.1–36.7; O2SAT 95–100; BMI 29.8
[2024-08-21] MEDS: sodium chloride 0.9% 1,000 ML 75 ML IV (00:15)
[2024-08-21] MEDS: piperacillin-tazobactam 3.375 GM in sodium chloride 0.9% (plus) 50 ML IV ×2 (00:20→13:02)
--- NOTE | 2024-08-21 10:30 | PC.CHAP ---
Pastoral Care Encounter/Spiritual Assessment Type of Contact [] Declined linter tender visit [] Patient/Family/Request visit [] Outpatient visit [] Follow-up visit [] Physician referral [] Code/Alert [x] Routine visit [] Staff referral [] Actively dying [] Patient sleeping [] Family support [] [] Out of room [] Palliative care [] [] Receiving care in room [] Pre-surgical visit [] Trauma [] Long length of stay [] ICU visit [] Other: Relational/Emotional Strength [x] Patient feels connected with others/family/visitors/staff [] Distress [] Loneliness/isolation [] Abandonment Spirituality of Patient [] Person of May [] Attends Episcopal of their May [] Believes in Prayer [] Reads Bible or Temple materials [] There are Spiritual issues to be addressed Payroll Tax Specialist Interventions [] Prayer [] Active listening [x] Non-anxious presence [x] Spiritual/emotional support [] Crisis/trauma care [] Spiritual counseling [] Bereavement support [] Provided bereavement packet [] Provided Bible/devotional materials [] Provided toy/stuffed animal, coloring book to patient or family member [] Provided Communion [] Anointing/Hoffmeister [] Salvation [] Completed spiritual assessment [] Other: Impact on Illness or Injury [] Angry [] Fearful [] Anxious [] Often cries [] Exhaustion [] Unable to work [] Unable to attend mu-ism [] Unable to walk/stand [] Unable to read [] Unable to drive [] Unable to eat/drink [] Unable to sleep [] Unable to be with family [] Patient intubated [] Other: Summary Time spent with patient 5 min
--- NOTE | 2024-08-21 11:06 | P.HP_ITS ---
Providers/Chief Complaint 2 Admitting Physician: Jorge Lezama MD Chief Complaint: ABD Pain History of Present Illness Marli Samuels is a 29 year old female who presents with early acute cholecystitis. Patient reports severe RUQ pain starting last night. CT and US imaging consistent with the diagnosis. Medications/Allergies Home Medications ?Medication ?Instructions ?Recorded ?Confirmed ?Last Taken ?Type docusate sodium 100 mg capsule 100 mg PO DAILY 5 07/04/24 Unknown History (Dulcolax Stool Softener (docusate)) ibuprofen 200 mg capsule 200 mg PO Q6H PRN 07/04/24 0 07/04/24 Unknown History Allergies Allergy/AdvReac Type Severity Reaction Status Date / Time No Known Allergies Allergy Verified 07/04/24 08:05 PFSH Acute 2 PFSH: Medical History (Updated 08/20/24 @ 23:51 by Sanket Gilmore MD) No pertinent past medical history neghx: dm, thyroid, dvt/pe PCP: none Twin delivered vaginally Twin , dichorionic/diamniotic, unspecified trimester Surgical History (Updated 07/18/24 @ 09:48 by Janay Kohler NP) No pertinent past surgical history Family History Mother Hypertension Brother Hypertension Denies family history of Colon cancer Ovarian cancer Prostate cancer Diabetes Heart disease Breast cancer Thyroid disease Stroke Social History Smoking and tobacco/nicotine status: never used tobacco/nicotine Female Reproductive History: : 1 Vitals/I&O/Wt Last Vital Signs Temp 97.6 F 08/21/24 08:21 Pulse 71 08/21/24 08:21 Resp 16 08/21/24 08:21 BP 147/63 08/21/24 08:21 Pulse Ox 96 08/21/24 08:21 O2 Del Method Room Air 08/21/24 08:21 08/20/24 08/21/24 08/21/24 22:59 06:59 14:59 Intake Total 1050 / 1050 Balance 1050 / 1050 Weight last 48 hrs Weight 207 lb 14.4 oz Weight 208 lb Weight 205 lb Physical Exam 2 Narrative: Unlabored breathing RA RRR Abdomen soft, mildly TTP RUQ, non distended, non peritonitic Data 08/20/24 21:40 08/20/24 21:40 A&P Assessment and plan (1) Acute cholecystitis: Plan 29 yo female who presented with acute cholecystitis. Discussed risks and benefits and patient agrees to proceed with laparoscopic cholecystectomy, possble open. I have discussed the risks and benefits of laparoscopic cholecystectomy and patient agrees to proceed. Patient understands that the risks of the surgery include postoperative infection, bleeding, bile leak, incisional hernia, and in very rare instances injuries to the bowel, common bile duct, portal vein, and liver failure. PDMP PDMP Reviewed: Not Reviewed Attestations 2 Medical Necessity Statement*: IV antibiotics, IVFs, IV pain meds Coding Level of Care Code 61393 Diagnoses Acute cholecystitis K81.0
[2024-08-21] MEDS: sodium chloride 0.9% 1,000 ML 30 ML IV (12:25)
[2024-08-21] MEDS: lidocaine-epi 1% 20 mL INJ 10 ML INJECTION (13:59)
--- NOTE | 2024-08-21 13:59 | PM.OP ---
Operative Report Date of procedure: August 21, 2024 Pre-op diagnosis: Acute cholecystitis Post-op diagnosis: same Post-op findings: Acute cholecystitis Procedure done: Laparoscopic cholecystectomy Implants: NA Specimens removed/disposition: Gallbladder sent to pathology Pathology: Gallbladder sent to pathology Surgeon: Jorge Lezama MD Housekeeping Supervisor: N/A Anesthesia: General Estimated blood loss (mL): 10 Complications: N/A Findings: Cholecystitis Condition: stable Disposition: observation Brief History: 29-year-old female who presented with acute cholecystitis. Discussed risk and benefits and patient agreed to proceed with laparoscopic cholecystectomy possible open. Procedure: I discussed the risks and benefits of laparoscopic cholecystectomy, and obtained consent prior to proceeding to the operating room. SCDs were utilized. Prophylactic antibiotics were administered. General anesthesia was induced. The patient was placed supine, and was prepped and draped in the usual sterile fashion. Insufflation to 15mmHg was achieved using a Veress needle at Schwab's point. A 12mm optiview trocar was placed at the umbilicus under direct visualization. The left upper quadrant was inspected, and no injuries were noted. Two 5mm ports were placed in the right upper quadrant, and a 12mm working port was placed in the epigastrium. The gallbladder was then retracted cephalad through the lateral RUQ port, and the infundibulum grabbed through the medial RUQ port and retracted laterally. The gallbladder was inflammed consistent with the diagnosis of cholecystitis. I proceeded to score the peritoneum over the medial aspect of the gallbladder using a laparoscopic hook with electrocautery. Then the infundibulum was retracted medially in order to score the peritoneum over the lateral aspect of the galbladder. Using a combination of energy and blunt dissection with the [place] and a Kittner dissector, the cystic artery and cystic duct were dissected. I then proceeded to dissect the cystic plate in order to to achieve the critical view of safety (CVS - hepatocystic triangle was cleared of fat and fibrous tissue, the lower one-third of the gallbladder was from the liver to expose the cystic plate, two and only two structures were seen entering the gallbladder, the cystic duct and the cystic artery). The cystic artery and the cystic duct were clipped three times (leaving two clips on the proximal end of both structures). I then proceeded to dissect the gallbladder off the liver using hook electrocautery. The specimen was placed in an endocatch bag and retrieved from the abdomen through the port on the epigastrium. I confirmed adequate hemostasis and the absence of any bile leaks in the gallbladder fossa. Prior to ending the laparoscopic portion, I examined the rest of the abdomen and did not find any abnormalities or injuries. The abdomen was then desufflated, and the 12mm port at the umbilicus was closed using 0 vicryl on a UR needle after irrigating copiously. Skin was closed using 4-0 monocryl and surgical glue. The patient woke up from anesthesia and transferred to PACU without any complications.
--- NOTE | 2024-08-21 14:50 | ANE.PACU2 ---
Inpatient post-anesthesia follow up: Airway intact: Yes Vital signs: Temperature 97.6 F Pulse Rate 63 Respiratory Rate 16 Blood Pressure 127/84 Pulse Oximetry 100 Oxygen Delivery Me thod Room Air Oxygen Flow Rate Fraction of Inspir ed Oxygen Hydration adequate: Yes Nausea and vomiting: No Pain level: 1 Mental status: Baseline
[2024-08-21] MEDS: oxyCODONE 5 mg IR Tab/Cap PO (15:29)
--- NOTE | 2024-08-21 16:02 | PC.NURSE ---
Discharge: Per Dr. Lezama, pt can d/c around 1700 if she can tolerate dinner.
--- NOTE | 2024-08-22 11:52 | P.PN_ITS ---
Subjective 2 Subjective: Pain under control Tolerating p.o. Abdomen benign Vitals/I&O/Wt Last Vital Signs Temp 97.6 F 08/21/24 18:19 Pulse 63 08/21/24 18:19 Resp 16 08/21/24 18:19 BP 127/84 08/21/24 18:19 Pulse Ox 100 08/21/24 18:19 O2 Del Method Room Air 08/21/24 17:00 08/21/24 08/22/24 08/22/24 22:59 06:59 14:59 Intake Total 1240 / 1290 Balance 1240 / 1285 Weight last 48 hrs Weight 207 lb 14.4 oz Weight 208 lb Weight 205 lb Physical Exam 2 Narrative: Chest: Unlabored breathing room air. No lymphadenopathy. Heart: Regular rate and rhythm. Abdomen: Soft, appropriately tender, nondistended. No masses or lymphadenopathy. Incisions clean dry intact Data 08/20/24 21:40 08/20/24 21:40 A&P Assessment and plan (1) Acute cholecystitis: Plan 29-year-old female who presented with acute cholecystitis. Status post lap jill. Cleared for discharge. PDMP PDMP Reviewed: Last Reviewed 08/21/24 15:09 EDT by Jorge Lezama MD Attestations 2 Medical Necessity Statement*: IV antibiotics, IV fluids, IV pain meds Coding Level of Care Code Acute Code for Chg Fwd Diagnoses Acute cholecystitis K81.0
--- NOTE | 2024-08-22 11:53 | PM.DCS ---
Discharge Providers Date of Admission: 08/20/24 23:51 Date of Discharge: August 21, 2024 Attending Provider at Admission: Jorge Lezama MD Attending Provider at Discharge: Jorge Lezama MD Diagnoses at Discharge Discharge Diagnosis (1) Acute cholecystitis: Status: Resolved Reason for Visit Reason for Visit: ABD Pain Hospital Course Hospital Course 29-year-old female who was admitted with acute cholecystitis. Proceeded to the operating room for laparoscopic cholecystectomy. Patient did well postop and was discharged that evening. She will follow-up in 2 weeks in the office. Physical Exam Narrative: Chest: Unlabored breathing room air. No lymphadenopathy. Heart: Regular rate and rhythm. Abdomen: Soft, appropriately tender, nondistended. No masses or lymphadenopathy. Incisions clean dry intact Discharge Data Studies Completed and Pending Completed Studies During Hospitalization Category Date Time Status CT abdomen pelvis w con* [id number] Stat Cat Scan 08/20/24 21:36 Completed US gall bladder [id number] Stat Ultrasound 08/20/24 22:47 Completed Pending at discharge Category Date Time Status Pathology: Surgical [PTH] Routine Pth 08/21/24 13:57 Received Radiology Impressions Abdomen/Pelvis CT 08/20/24 21:36 IMPRESSION: 1. Findings suspicious for symptomatic cholelithiasis versus early acute cholecystitis in the proper clinical setting. Consider correlation with biliary labs and right upper quadrant ultrasound. Gallbladder Ultrasound 08/20/24 22:47 IMPRESSION: 1. Findings compatible with early acute cholecystitis in the proper clinical setting. Laboratory Results WBC 5.61 10^3/uL (3.29-11.43) 08/20/24 21:40 RBC 4.49 10^6/uL (3.85-5.65) 08/20/24 21:40 Hgb 12.80 g/dL (11.27-16.99) 08/20/24 21:40 Hct 39.3 % (36-47) 08/20/24 21:40 MCV 87.5 fl (85-98) 08/20/24 21:40 MCH 28.5 pg (27-33) 08/20/24 21:40 MCHC 32.6 g/dL (30-55) 08/20/24 21:40 RDW 12.1 % (12.1-15.1) 08/20/24 21:40 Plt Count 184 10^3/cmm (157-399) 08/20/24 21:40 MPV 10.5 fL (7.4-10.4) H 08/20/24 21:40 Neut % (Auto) 37.2 % 08/20/24 21:40 Lymph % (Auto) 50.6 % 08/20/24 21:40 [place] % (Auto) 9.3 % 08/20/24 21:40 Eos % (Auto) 2.0 % 08/20/24 21:40 Baso % (Auto) 0.7 % 08/20/24 21:40 Neut # (Auto) 2.09 10^3/uL (1.8-7.7) 08/20/24 21:40 Lymph # (Auto) 2.8 10^3/uL (0.8-4.8) 08/20/24 21:40 [place] # (Auto) 0.5 10^3/uL (0.2-0.9) 08/20/24 21:40 Eos # (Auto) 0.1 10^3/uL (0.0-0.8) 08/20/24 21:40 Baso # (Auto) 0.0 10^3/uL (0.0-0.1) 08/20/24 21:40 Nucleated RBC % (auto) 0 % 08/20/24 21:40 Nucleated RBCs # 0.0 /100WBC 08/20/24 21:40 Sodium 143 mmol/L (136-145) 08/20/24 21:40 Potassium 4.3 mmol/L (3.5-5.1) 08/20/24 21:40 Chloride 106 mmol/L (98-107) 08/20/24 21:40 Carbon Dioxide 22 mmol/L (22-29) 08/20/24 21:40 Anion Gap 19.3 (5-19) H 08/20/24 21:40 BUN 12 mg/dL (6-20) 08/20/24 21:40 Creatinine 1.0 mg/dL (0.5-0.9) H 08/20/24 21:40 GFR Calculation 66.0 mL/min (90-130) L 08/20/24 21:40 Glucose 137 mg/dL (65-115) H 08/20/24 21:40 Calculated Osmolality 298 mOsm/kg (285-295) H 08/20/24 21:40 Calcium 9.5 mg/dL (8.5-10.5) 08/20/24 21:40 Total Bilirubin 0.6 mg/dL (0.15-1.2) 08/20/24 21:40 AST 38 U/L (0-32) H 08/20/24 21:40 ALT 37 U/L (0-33) H 08/20/24 21:40 Alkaline Phosphatase 92 U/L (35-105) 08/20/24 21:40 Total Protein 7.0 g/dL (6.6-8.7) 08/20/24 21:40 Albumin 4.5 g/dL (3.5-5.2) 08/20/24 21:40 Globulin 2.5 g/dL (1.3-4.6) 08/20/24 21:40 Lipase 27 U/L (13-60) 08/20/24 21:40 HCG, Qual Negative (Negative) 08/20/24 21:40 Vitals Last Vital Signs Temp 97.6 F 08/21/24 18:19 Pulse 63 08/21/24 18:19 Resp 16 08/21/24 18:19 BP 127/84 08/21/24 18:19 Pulse Ox 100 08/21/24 18:19 O2 Del Method Room Air 08/21/24 17:00 Discharge Plan Discharge Patient Disposition: Home Condition: Stable Prescriptions: New oxycodone 5 mg tablet 5 mg PO Q6H PRN (Reason: pain) 5 Days Qty: 10 0RF Discharge Orders: Discharge Order (Routine); Ordered 08/21/24 Ordered By: Jorge Lezmaa Referrals: Jorge Lezama MD [Physician, General Surgery] Patient Instructions: Oxycodone, Rapid Release (By mouth), Cholecystitis (DC), Acute Wound Care (DC), Laparoscopic Cholecystectomy (DC), Opioid Safety, Post Anesthesia Care Stand Alone Forms: Work/School Release Discharge Attestations Time Spent in Discharge Care*: greater than 30 min Quality Metrics Clinical Quality Measures [ No reported AMI, CVA or VTE this stay] Coding Level of Care Code Acute Code for [facility] Fwd Diagnoses Acute cholecystitis K81.0
== END 2024-08-21 18:20 | disposition home or self-care (01) ==
LOC: ER 23:51 → MEDSURG 08-21 11:27
PROVIDERS: Admitting Provider Student in an Organized Health Care Education/Training Program; Emergency Provider Emergency Medicine; Visit Provider Student in an Organized Health Care Education/Training Program
PROC: 0FT44ZZ Resection of Gallbladder, Percutaneous Endoscopic Approach (ICD-10-PCS; CPT 47562; principal; 2024-08-21 14:00)
DX: K81.2 Acute cholecystitis with chronic cholecystitis (principal)
CPT/HCPCS: 47562; 36415; 74177; 76705; 80053; 83690; 84703; 85025; 88304; 96365; 96375; 99285; G0378; J0131; J1100; J1171; J1885; J2250; J2270; J2405; J2543; J2704; J3010; J3490; J7030; J9999

== ENCOUNTER → 2024-09-11 15:40 | Outpatient (BNVA) | payer OTHER, SELFPAY | PROVIDERS: Visit Provider Podiatrist Foot & Ankle Surgery | DX: D18.01 Hemangioma of skin and subcutaneous tissue (principal) | CPT/HCPCS: 87070; 87077; 87176; 87186; 87205 ==